=== PATIENT | male | born 1990 | race Two or more races ===

== ENCOUNTER 2018-06-30 17:53 | Emergency (ER) | payer MEDICAID ==
[~2018-06-30] VITALS: Ht 177.8 cm; Wt 77.0 kg
[2018-06-30] MEDS ORDERED: METRONIDAZOLE 500MG TABLET PO ONE (19:30)
[2018-06-30] MEDS ORDERED: AZITHROMYCIN 500 MG TABLET PO ONE (19:30)
[2018-06-30] MEDS ORDERED: CEFTRIAXONE SODIUM 250 MG/VIAL IM ONE (19:30)
[2018-06-30 19:44] LABS: CLARITY URINE CLOUDY (CLEAR); COLOR URINE YELLOW (YELLOW); KETONES URINE 1+ (NEGATIVE); LEUKOCYTE ESTERASE URINE 2+ (NEGATIVE); NITRITE URINE NEGATIVE (NEGATIVE); OCCULT BLOOD URINE TRACE (NEGATIVE); PH URINE 5.5 (4.5-8.0); PROTEIN URINE NEGATIVE (NEGATIVE); SPECIFIC GRAVITY URINE 1.032 (1.005-1.030); UROBILINOGEN URINE 0.2 E.U./dL (0.2-1.0)
[2018-06-30] MEDS ORDERED: ACETAMINOPHEN 500MG TABLET PO ONE (20:15)
[2018-06-30 20:17] VITALS: BP 139/78
== END 2018-06-30 20:18 | disposition home or self-care (01) ==
LOC: ER 17:53
DX: A64 Unspecified sexually transmitted disease (principal); R30.0 Dysuria
CPT/HCPCS: 81003; 87086; 96372; 99284; J0696